=== PATIENT | male | born 1990 | race Caucasian/White ===

== ENCOUNTER 2020-01-08 10:17 | Outpatient (CLI) | payer OTHER, SELFPAY ==
--- NOTE | ~2020-01-08 | CT_ITS ---
EXAMINATION: CT shoulder LT wo con DATE: 01/08/2020 10:48 INDICATION: Left anterior shoulder pain. TECHNIQUE: Computed tomography (CT) of the left shoulder was performed without intravenous contrast. Automated exposure control and iterative reconstruction technique were employed. The dose-length prod uct was 545.62 mGy-cm. COMPARISON: Left shoulder MRI 11/16/2019 FINDINGS: Bone alignment is normal. There is an impaction fracture deformity of posterolateral aspect of the humeral head (Hill-Sachs fracture). There is a fracture of the anterior-inferior glenoid with a 12 x 3 x 8 mm bone fragment displaced 3 mm medially. There is a small subchondral cyst of the jemima ral head. There are tiny osteophytes of the glenoid. There are benign bone islands in humeral head an d scapula. The acromioclavicular joint is normal. IMPRESSION: 1. Displaced Bankart fracture. 2. Hill-Sachs fracture deformity. 3. Mild glenohumeral joint osteoarthritis. Reviewed, dictated and finalized at location A. [facility]
== END 2020-01-08 10:18 ==
DX: M19.011 Primary osteoarthritis, right shoulder (principal)
CPT/HCPCS: 73200